=== PATIENT | female | born 1985 | race Caucasian/White ===

== ENCOUNTER 2018-01-13 14:59 | Emergency (ER) | payer OTHER ==
[2018-01-13 15:03] VITALS: BP 116/69; PULSE 96; TEMP 98.5; BMI 21.6
--- NOTE | 2018-01-13 15:03 | PDOC ---
Rapid Medical Evaluation Time Seen by Provider: 01/13/18 15:01 Medical Evaluation: 01/13/18 15:01 I have performed a brief in-person evaluation of this patient. The patient presents with a chief complaint of: vaginal discharge w/ itching x 2 days Pertinent physical exam findings:stable and in NAD I have ordered the following:ua/upreg/gc/chlam The patient will proceed to the ED for further evaluation. Discharge Disposition - Diagnosis Vaginal discharge - Referrals - Patient Instructions - Post Discharge Activity
--- NOTE | 2018-01-13 15:50 | PDOC ---
History of Present Illness - General Chief Complaint: Vaginal Sxs Stated Complaint: RASH Time Seen by Provider: 01/13/18 15:01 History Source: Patient Exam Limitations: No Limitations - History of Present Illness Travel History: No Initial Comments: 01/13/18 15:37 Patient came for evaluation of vaginal itching and burning over the past few days. States has had some vaginal dryness, and increasing amount of thick white very itchy drainage. Has suffered from yeast infections in the past and had been told could be blood sugar related as she is prediabetic. Patient denies checking blood sugars and has not had thorough exam for over a year. Denies fever, denies any abdominal pain. However states boyfriend is suffering from some itchiness and some mild erythema to his penis. No history of STDs however was treated at age 19 for HPV with good resolved. 01/13/18 16:02 Timing/Duration: reports: constant, getting worse Quality: reports: mild, moderate Abdominal Pain Onset Location: reports: suprapubic Past History - Travel Traveled outside of the country in the last 30 days: No Close contact w/someone who was outside of country & ill: No - Past Medical History Allergies/Adverse Reactions: Allergies Allergy/AdvReac Type Severity Reaction Status Date / Time No Known Allergies Allergy Verified 01/13/18 15:03 Home Medications: Ambulatory Orders Fluconazole 150 mg PO ONCE #2 tablet 01/13/18 Nitrofurantoin Monohyd/M-Cryst [Macrobid -] 100 mg PO BID #14 capsule 01/13/18 COPD: No - Suicide/Smoking/Psychosocial Hx Smoking History: Current every day smoker Number of Cigarettes Smoked Daily: 6 Information on smoking cessation initiated: Yes 'Breaking Loose' booklet given: 01/13/18 Review of Systems - Review of Systems Able to Perform ROS?: Yes Is the patient limited Lao proficient: Yes Constitutional: Yes: Symptoms Reported, See HPI, Malaise HEENTM: No: Symptoms Reported Respiratory: No: Symptoms reported ABD/GI: No: Symptoms Reported : Yes: Symptoms Reported Musculoskeletal: Yes: Symptoms Reported Integumentary: Yes: Symptoms Reported, See HPI Neurological: No: Symptoms reported All Other Systems: Reviewed and Negative *Physical Exam - Vital Signs Last Vital Signs Temp Pulse Resp BP Pulse Ox 98.5 F 96 H 18 116/69 98 01/13/18 15:01 01/13/18 15:01 01/13/18 15:01 01/13/18 15:01 01/13/18 15:01 - Physical Exam General Appearance: Yes: Nourished, Appropriately Dressed, Apparent Distress, Mild Distress HEENT: positive: [place], Normal ENT Inspection, TMs Normal, Pharynx Normal Neck: positive: Tender, Supple. negative: Lymphadenopathy (R), Lymphadenopathy (L) Respiratory/Chest: positive: Lungs Clear Female Pelvic Exam: positive: normal external exam, cervical os closed, normal adnexa (OPS thick white discharge consistent with appearance of Bibi, no ulcerations,vulva and perineum appears beefy red), discharge. negative: CMT, adnexal tenderness Gastrointestinal/Abdominal: positive: Normal Bowel Sounds, Soft, Guarding Musculoskeletal: negative: Normal Inspection Extremity: positive: Normal Capillary Refill Integumentary: positive: Normal Color, Dry, Warm Neurologic: positive: manager primary care II-XII NML intact, Fully Oriented, Alert, Normal Mood/ Affect, Normal Response, Motor Strength 5/5 Progress Note - Progress Note Progress Note: Fingerstick 107 Candidal vaginal infection, we'll treat with Diflucan, urinary tract infection, I'll treat with Macrodantin. Patient understands to increase acidophilus and yogurt to help counteract yeast infection . Understands need to follow up next week with FACILITY TECHNICIAN for reevaluation *DC/Admit/Observation/Transfer Diagnosis at time of Disposition: Vaginal candidiasis UTI (urinary tract infection) Qualifiers: Urinary tract infection type: acute cystitis Hematuria presence: without hematuria Qualified Code(s): N30.00 - Acute cystitis without hematuria - Discharge Dispostion Disposition: HOME Condition at time of disposition: Stable Decision to Admit order: No - Prescriptions Prescriptions: Fluconazole 150 mg PO ONCE #2 tablet Nitrofurantoin Monohyd/M-Cryst [Macrobid -] 100 mg PO BID #14 capsule - Referrals Referrals: Ruslan Bailey MD [Staff Physician] - [facility] [Provider Group] - Patient Instructions Printed Discharge Instructions: DI for Vaginal Yeast Infection, DI for Urinary Tract Infection (UTI) Additional Instructions: Rest, keep cool and dry- avoid strenuous activity or hot /humid environments Less hot showers, no abrasive soaps Wear loose fitting clothes, cotton underwear, avoid any tight or hot clothing until infection resolves May use cool sitz baths to help keep perineum clean Sexual activity until infection is resolved 1 tablet of Diflucan 150 mg tablet , may repeat in 3 days if not resolved Followup with PMD in one week for follow-up and repeat urinalysis Make appointment with machine tender for evaluation when possible - Post Discharge Activity Forms/Work/School Notes: Back to Work
[2018-01-13 16:30] LABS: URINE APPEARANCE CLEAR; URINE BILIRUBIN NEGATIVE (<2.0 mg/dL); URINE COLOR YELLOW; URINE GLUCOSE (UA) NEGATIVE (NEGATIVE); URINE KETONE NEGATIVE (NEGATIVE); URINE NITRITE NEGATIVE (NEGATIVE); URINE PROTEIN NEGATIVE (NEGATIVE)
[2018-01-13 16:49] LABS: HCG,QUALITATIVE URINE NEGATIVE
[2018-01-13 16:52] LABS: URINE LEUK ESTERASE 1+ (NEGATIVE)
[2018-01-13 17:13] LABS: EPI CELLS RARE /HPF (FEW); URINE MUCUS MANY
== END 2018-01-13 18:04 | disposition home or self-care (01) ==
LOC: JERFT 14:59
DX: B37.3 Candidiasis of vulva and vagina (principal); N30.00 Acute cystitis without hematuria; F17.210 Nicotine dependence, cigarettes, uncomplicated; R73.03 Prediabetes
CPT/HCPCS: 36415; 81003; 81015; 82962; 84703; 87070; 87086; 87205; 87491; 87591; 99281-25

== ENCOUNTER 2020-06-05 13:17 | Emergency (ER) | payer OTHER ==
[2020-06-05 13:36] VITALS: BP 112/78; PULSE 94; TEMP 98.8; BMI 21.6
== END 2020-06-05 14:19 | disposition home or self-care (01) ==
LOC: JERFT 13:17
DX: N76.0 Acute vaginitis (principal)
CPT/HCPCS: 36415; 87070; 87077; 87205; 87491; 87591; 99283-25; C9803; U0003

== ENCOUNTER 2020-08-23 05:26 | Day surgery (SDC) | payer OTHER ==
[2020-08-22 11:43] VITALS: BMI 21.6
[2020-08-23] MEDS ORDERED: MIDAZOLAM HCL 2 MG/2 ML SINGLE DOSE VIAL ONE ×3 (10:32→10:40)
[2020-08-23] MEDS ORDERED: PROPOFOL 20 ML ONE ×2 (10:40)
[2020-08-23] MEDS ORDERED: ONDANSETRON 4 MG/2 ML VIAL IVPUSH PRN (11:12)
[2020-08-23] MEDS ORDERED: oxyCODONE HCL 5 MG TABLET PO PRN (11:12)
[2020-08-23] MEDS ORDERED: LACTATED RINGERS SOLUTION 1,000 ML IV SCH (11:15)
[2020-08-23] MEDS ORDERED: ceFAZolin SODIUM 1 GM VIAL IVPB ONE (11:40)
[2020-08-23 15:09] VITALS: BP 108/77; PULSE 72; TEMP 97.8
== END 2020-08-23 15:30 | disposition home or self-care (01) ==
LOC: JASU-SURG 05:26
PROVIDERS: ATTEND Orthopaedic Surgery
PROC: 0RQK4ZZ Repair Left Shoulder Joint, Percutaneous Endoscopic Approach (ICD-10-PCS; principal; 2020-08-23 11:30)
PROC: 0RQK4ZZ Repair Left Shoulder Joint, Percutaneous Endoscopic Approach (ICD-10-PCS; 2020-08-23 11:30)
DX: S43.432A Superior glenoid labrum lesion of left shoulder, initial encounter (principal); X58.XXXA Exposure to other specified factors, initial encounter; Y93.9 Activity, unspecified; Y92.9 Unspecified place or not applicable; Y99.9 Unspecified external cause status
CPT/HCPCS: 81025; 88304-TC; 94760

== ENCOUNTER 2021-05-26 10:41 | Emergency (ER) | payer OTHER ==
[2021-05-26 10:59] VITALS: BP 120/77; PULSE 99; TEMP 98.4; BMI 24.1
[2021-05-26] MEDS ORDERED: ONDANSETRON 4 MG/2 ML VIAL IVPUSH ONE (11:57)
[2021-05-26] MEDS ORDERED: SODIUM CHLORIDE 1,000 ML IV STA (11:57)
[2021-05-26] MEDS ORDERED: ONDANSETRON 4 MG/2 ML VIAL ONE (12:39)
[2021-05-26 12:59] LABS: URINE APPEARANCE CLEAR; URINE BILIRUBIN NEGATIVE (NEGATIVE); URINE COLOR YELLOW; URINE GLUCOSE (UA) NEGATIVE (NEGATIVE); URINE KETONE 1+ (NEGATIVE); URINE LEUK ESTERASE NEGATIVE (NEGATIVE); URINE NITRITE NEGATIVE (NEGATIVE); URINE PROTEIN NEGATIVE (NEGATIVE); URINE UROBILINOGEN 0.2 mg/dL (0.2-1.0)
[2021-05-26 13:25] LABS: BASO % 0.5 % (0-2.0); EOS % 0.2 % (0-4.5); HEMATOCRIT 40.3 % (32.4-45.2); HEMOGLOBIN 13.3 GM/dL (10.7-15.3); LYMPH % 21.3 % (8-40); MEAN CELL VOLUME 78.8 fl (80-96); MEAN PLT VOLUME 8.4 fl (7.5-11.1); MONO % 11.6 % (3.8-10.2); NEUT % 66.4 % (42.8-82.8); PLATELET COUNT 233 10^3/uL (134-434); RBC 5.12 M/mm3 (3.60-5.2)
[2021-05-26 13:31] LABS: CALCIUM 8.7 mg/dL (8.5-10.1)
[2021-05-26 13:32] LABS: ALBUMIN 3.9 g/dl (3.4-5.0); BLOOD UREA NITROGEN 8.3 mg/dL (7-18)
[2021-05-26 13:35] LABS: CREATININE 0.6 mg/dL (0.55-1.3)
[2021-05-26 13:36] LABS: BILIRUBIN,TOTAL 0.3 mg/dL (0.2-1); TOT PROT 7.6 g/dl (6.4-8.2)
== END 2021-05-26 15:23 | disposition home or self-care (01) ==
LOC: JER 10:41
PROC: 3E033GC Introduction of Other Therapeutic Substance into Peripheral Vein, Percutaneous Approach (ICD-10-PCS; principal; 2021-05-26)
DX: A09 Infectious gastroenteritis and colitis, unspecified (principal)
CPT/HCPCS: 36415; 80053; 81003; 83690; 84703; 85025; 87045; 87046; 87086; 87186; 99284-25; C9803; U0003; U0005

== ENCOUNTER 2024-09-02 06:37 | Day surgery (SDC) | payer OTHER ==
[2024-08-30 09:54] VITALS: BMI 26.2
[2024-09-02] MEDS ORDERED: MIDAZOLAM HCL 2 MG/2 ML SINGLE DOSE VIAL ONE (08:18)
[2024-09-02] MEDS ORDERED: ROCURONIUM BROMIDE 50 MG/5 ML SYRINGE ONE (08:19)
[2024-09-02] MEDS ORDERED: PROPOFOL 40 ML ONE (08:20)
[2024-09-02] MEDS ORDERED: SUCCINYLCHOLINE CHLORIDE 200 MG/10 ML SYRINGE ONE (08:22)
[2024-09-02] MEDS ORDERED: LIDOCAINE 1%/EPI 1:100000 (20 ML MULTI DOSE VIAL) ONE (08:32)
[2024-09-02] MEDS: OXYMETAZOLINE 0.05% NASAL SOLUTION 15 ML BOTTLE NS ONE (09:04)
[2024-09-02] MEDS: ceFAZolin SODIUM 1 GM VIAL IVPB ONE (09:07)
[2024-09-02] MEDS: LIDOCAINE 1%/EPI 1:100000 (20 ML MULTI DOSE VIAL) IJ ONE (09:10)
[2024-09-02] MEDS ORDERED: DEXAMETHASONE SOD PHOSPHATE 4 MG/1 ML VIAL ONE (09:40)
[2024-09-02] MEDS ORDERED: ONDANSETRON 4 MG/2 ML VIAL ONE (09:48)
[2024-09-02] MEDS ORDERED: ACETAMINOPHEN INJECTION 100 ML ONE (09:52)
[2024-09-02] MEDS ORDERED: SUGAMMADEX SODIUM 200 MG/2 ML VIAL ONE (09:54)
[2024-09-02] MEDS ORDERED: ONDANSETRON 4 MG/2 ML VIAL IVPUSH PRN (10:15)
[2024-09-02] MEDS: LACTATED RINGERS SOLUTION 1,000 ML IV SCH (10:20)
[2024-09-02 11:28] VITALS: RESP 18
[2024-09-02 12:56] VITALS: BP 112/80; PULSE 76; TEMP 97.6
== END 2024-09-02 12:50 | disposition home or self-care (01) ==
LOC: JASU-SURG 06:37
PROVIDERS: ATTEND Otolaryngology
PROC: 09SM0ZZ Reposition Nasal Septum, Open Approach (ICD-10-PCS; principal; 2024-09-02 10:00)
DX: J34.2 Deviated nasal septum (principal); J34.3 Hypertrophy of nasal turbinates
CPT/HCPCS: 81025; 86850; 86900; 86901; 88304-TC; 88311-TC; 94760; J0131